=== PATIENT | female | born 1950 | race African-American/Black ===

== ENCOUNTER 2024-10-23 21:57 | Emergency (ER) | payer MEDICARE, MEDICAID ==
[~2024-10-23] VITALS: Ht 165.1 cm; Wt 77.3 kg
[~2024-10-23 21:57] MED LIST: ALBU8.5H8 IH; CITA10TA99 PO; CLON-595 PO; HYDR25TA2 PO; LISI-894 PO; METO50 PO; OMEP-148 PO; OXYC500S2 PO; SLOWK8 PO
[2024-10-23 22:03] VITALS: TEMP 98.4
[2024-10-23] MEDS ORDERED: CARV25TA32 PO (22:06)
[2024-10-23] MEDS ORDERED: LISI-1024 PO (22:06)
[2024-10-23] MEDS ORDERED: ROSU20TA98 PO (22:06)
[2024-10-23] MEDS ORDERED: OXYC-618 PO (22:06)
[2024-10-23] MEDS ORDERED: POTA8TAB71 PO (22:06)
[2024-10-23] MEDS ORDERED: HYDR25TA PO (22:06)
[2024-10-23] MEDS ORDERED: TOPI-258 PO (22:06)
[2024-10-23] MEDS ORDERED: EZET10TA57 PO (22:06)
[2024-10-23] MEDS ORDERED: CHOL500045 PO (22:06)
[2024-10-23] MEDS ORDERED: MIRT-93 PO (22:06)
[2024-10-23] MEDS ORDERED: METH-812 PO (22:06)
[2024-10-23] MEDS ORDERED: LEVO125T95 PO (22:06)
[2024-10-23] MEDS ORDERED: CLON0.1T2 PO (22:06)
[2024-10-24 00:17] VITALS: BP 167/106; PULSE 110; RESP 18; O2SAT 99
[2024-10-24] MEDS ORDERED: OXYC-618 PO (00:24)
== END 2024-10-24 00:47 | disposition home or self-care (01) ==
LOC: EMS 22:06
DX: G89.29 Other chronic pain (principal); M54.9 Dorsalgia, unspecified; M54.2 Cervicalgia; I10 Essential (primary) hypertension; Z98.890 Other specified postprocedural states; Z79.890 Hormone replacement therapy; Z91.040 Latex allergy status; Z88.0 Allergy status to penicillin; Z88.5 Allergy status to narcotic agent; Z88.6 Allergy status to analgesic agent; Z90.710 Acquired absence of both cervix and uterus; Z79.899 Other long term (current) drug therapy
CPT/HCPCS: 99283